=== PATIENT | male | born 1965 | race Caucasian/White ===

== ENCOUNTER 2016-10-05 17:15 | Emergency (ER) | payer OTHER ==
[2016-10-05 18:33] LABS: BILIRUBIN NEGATIVE (NEGATIVE); BLOOD NEGATIVE Ery/uL (NEGATIVE); CLARITY CLEAR (CLEAR); COLOR YELLOW (YELLOW); GLUCOSE (U) NORMAL (NORMAL); KETONE (U) NEGATIVE (NEGATIVE); LEUKOCYTES NEGATIVE Leu/uL (NEGATIVE); NITRITE NEGATIVE (NEGATIVE); PROTEIN NEGATIVE (NEGATIVE); pH 6.5 (5.0-9.0)
[2016-10-05 19:14] LABS: BASOPHIL 0.6 % (0-2); EOSINOPHIL 0.1 % (0-5); HCT 46.8 % (42.0-52.0); LYMPHOCYTE 18.7 % (15-48); MCH 34.1 pg (25.0-31.0); MCHC 36.3 g/dL (32.0-36.0); MONOCYTE 10.1 % (0-12); MPV 9.1 fL (6.0-9.5); NEUTROPHIL 70.5 % (41-80); PLT 196 K/uL (150-400); RBC 4.98 M/uL (4.70-6.00); RDW 13.8 % (11.5-14.0); WBC 13.8 K/uL (4.0-10.5)
[2016-10-05 19:31] LABS: CREATININE 0.7 mg/dL (0.7-1.2); POTASSIUM 3.4 mmol/L (3.5-5.1)
== END 2016-10-05 20:05 | disposition home or self-care (01) ==
LOC: FER 17:15
PROVIDERS: Nurse Practitioner
DX: S06.9X9A Unspecified intracranial injury with loss of consciousness of unspecified duration, initial encounter (principal); F10.20 Alcohol dependence, uncomplicated; M54.2 Cervicalgia; M62.830 Muscle spasm of back; W17.89XA Other fall from one level to another, initial encounter; Y92.410 Unspecified street and highway as the place of occurrence of the external cause
CPT/HCPCS: 36415; 70450; 72040; 80048; 81003; 82150; 83690; 85025; G0480